=== PATIENT | male | born 1945 | race Caucasian/White ===

== ENCOUNTER 2018-12-28 11:17 | Emergency (ER) | payer OTHER | END 2018-12-28 15:33 | disposition home or self-care (01) | LOC: E/R 11:17 | DX: J95.01 Hemorrhage from tracheostomy stoma (principal); Z43.0 Encounter for attention to tracheostomy; Z79.01 Long term (current) use of anticoagulants; Z87.891 Personal history of nicotine dependence | CPT/HCPCS: 71045; 99283-25 ==